=== PATIENT | female | born 1960 | race Two or more races ===

== ENCOUNTER 2023-01-18 13:47 | Emergency (ER) | payer MEDICAID, OTHER ==
[~2023-01-18] VITALS: Ht 162.6 cm; Wt 78.0 kg
[2023-01-18] MEDS ORDERED: cefTRIAXone SOD 1,000 MG VL IM ONE (16:45)
[2023-01-18] MEDS ORDERED: DexAMETHasone SOD PHOS 10MG/1ML VIAL INJ IM ONE (16:45)
[2023-01-18] MEDS ORDERED: DEX4T PO (16:50)
[2023-01-18] MEDS ORDERED: ALBUAER3 IN (16:50)
[2023-01-18] MEDS ORDERED: GUAI100S6 PO (16:50)
[2023-01-18] MEDS ORDERED: AUG875T PO (16:50)
[2023-01-18] MEDS ORDERED: DOXY-346 PO (16:50)
[2023-01-18 17:04] VITALS: BP 115/66; PULSE 98; RESP 18; TEMP 98.3; O2SAT 96
[2023-01-18] MEDS ORDERED: ALBUTEROL SULF HFA 90MCG INH 200DOSE IN SCH (22:00)
== END 2023-01-18 17:05 | disposition home or self-care (01) ==
LOC: EDSEX 13:47 → ER 13:47
DX: U07.1 COVID-19 (principal); J18.9 Pneumonia, unspecified organism; K21.9 Gastro-esophageal reflux disease without esophagitis; I10 Essential (primary) hypertension
CPT/HCPCS: 71045; 96372; 99284; J0696; J1100